=== PATIENT | female | born 1995 | race Caucasian/White ===

== ENCOUNTER 2023-12-03 08:39 | Emergency (ER) | payer OTHER, SELFPAY ==
--- NOTE | ~2023-12-03 | CT_ITS ---
EXAMINATION: CT thoracic lumbar wo con DATE: 12/03/2023 13:37 INDICATION: Fall . TECHNIQUE: Computed tomography (CT) of the thoracic and lumbar spine was performed without intravenou s contrast. Automated exposure control and iterative reconstruction technique were employed. The dose -length product was 1807.54 mGy-cm. COMPARISON: None FINDINGS: THORACIC SPINE: Vertebral body alignment intact. Vertebral body heights preserved. T9 hemangioma. No disc space narro wing. Mild right anterolateral T12 superior endplate deformity, with a small, angular shaped and mini elba displaced fracture fragment. Visualized lung parenchyma is clear. LUMBAR SPINE: 5 nonrib-bearing lumbar-type vertebral bodies. Pedicles intact. Normal vertebral body alignment. Vert ebral body heights preserved. Disc spaces maintained. Normal facets and posterior elements. IMPRESSION: Mild wedge compression fracture at T12. No acute fracture or traumatic malalignment detected in the lumbar spine. Reviewed, dictated and finalized at location K. R OPERATOR
--- NOTE | ~2023-12-03 | XR_ITS ---
EXAMINATION: XR sacrum coccyx min 2V DATE: 12/03/2023 12:09 INDICATION: Right-sided sacrococcygeal pain post fall TECHNIQUE: Frontal, angled frontal and lateral views of the sacrum and coccyx were obtained. COMPARISON: None. FINDINGS: Alignment is normal. Sacral arches are intact. No fractures. Visualized lower lumbar disc spaces are normal. Bilateral hip and sacroiliac joint spaces are normal. IMPRESSION: 1. Negative sacrococcygeal radiographs. Reviewed, dictated and finalized at location A. OS DEVELOPER
[2023-12-03 08:57] VITALS: BP 135/75; PULSE 81; RESP 18; TEMP 36; O2SAT 97
--- NOTE | 2023-12-03 11:56 | ED.FALL ---
HPI - Fall General Chief Complaint: Fall Stated Complaint: Fall, Lower Back Pain Time Seen by Provider: 12/03/23 11:06 History of Present Illness HPI Narrative: Patient is a 28-year-old female who presents to the emergency department this morning status post a slip and. Patient states that she was walking outside and slipped on some ice landing on her coccyx. Patient is currently complaining of tailbone pain and lower back pain. Patient states that she has been walking since the fall but it is slightly uncomfortable due to pain. Denies any neurological symptoms including lower extremity weakness, any bowel or bladder incontinence, any numbness or tingling along the bilateral lower extremity. Patient denies falling backwards and denies hitting her head. States that she remembers the full event. She is currently denying any additional symptoms including chest pain, shortness of breath, nausea, vomiting, or abdominal pain. There are no other modifying, alleviating, or precipitating factors at this time. The remainder of the history present illness and review of systems negative unless stated otherwise in HPI. Related Data Allergies Allergy/AdvReac Type Severity Reaction Status Date / Time No Known Allergies Allergy Verified 12/03/23 08:59 Review of Systems Review of Systems: All systems are reviewed and are negative unless stated otherwise in the HPI. PMFSH Family History Family History Grandparent Thyroid cancer Social History Social History Smoking status: Never smoker Alcohol intake: current Substance use: never Lack of Transportation: No Lack of Food: Never True Current Housing: I Have Housing Concerned About Future Housing: No Difficulty Paying Gas/Electric Bills: No Difficulty Paying for Meds: No Currently Unemployed: No Education: Master's Degree or Higher Difficulty w/ Childcare or Family Care: No Living arrangements: with family Occupation/Education: occupation Additional occupation/education comments: [employer] Gender identity (if verbalized by the patient): Female Sexual Orientation (if Verbalized by the Patient): Straight or Heterosexual Comments Denies any significant past medical or surgical history. Exam Narrative: General: Alert, awake, afebrile, in no acute distress. HEENT: PERRL, no rhinorrhea, no post nasal drip, oropharynx clear. Neck: Trachea midline, no JVD, no lymphadenopathy. Cardiovascular: Regular rate and rhythm, no murmurs, rubs or gallops, no peripheral edema. Respiratory: Clear to auscultation bilaterally, no tachypnea, no wheezing, no rhonchi, no rubs, no respiratory distress. Abdomen: Soft, nontender, nondistended, no rebound, no guarding, no peritoneal signs. Musculoskeletal: No joint swelling or deformity, normal muscle tone. Back: No midline cervical spine tenderness to palpation, midline tenderness to palpation over the lower thoracic and lumbar spine extending down to the coccyx. No step-offs or deformities. Skin: No rashes or petechia, no signs of infection. Psychiatric: Alert and oriented, normal behavior and judgment for situation. Neurological: Alert and oriented to person, place, and time. Follows all commands. No focal deficits, speech is clear and fluent. Course Vital Signs Vital signs: Vital Signs Temperature 96.8 F L 12/03/23 08:57 Pulse Rate 81 12/03/23 08:57 Respiratory Rate 18 12/03/23 08:57 Blood Pressure 135/75 12/03/23 08:57 Pulse Oximetry 97 12/03/23 08:57 Oxygen Delivery Room Air 12/03/23 08:57 Temperature 96.8 F L 12/03/23 08:57 Pulse Rate 81 12/03/23 08:57 Respiratory Rate 18 12/03/23 08:57 Blood Pressure 135/75 12/03/23 08:57 Pulse Oximetry 97 12/03/23 08:57 Oxygen Delivery Room Air 12/03/23 08:57 MDM - Fall MDM Narrative Medical decision making narrative: The
[2023-12-03] MEDS: KETOROLAC 30 MG/ML VIAL (*BKC) 15 MG IM (14:49)
[2023-12-03] MEDS: LIDOCAINE 5% PATCH 1 PATCH TRANSDERM (14:51)
[2023-12-03 15:11] VITALS: BP 127/74; PULSE 80; RESP 18; O2SAT 98
== END 2023-12-03 15:12 | disposition home or self-care (01) ==
PROVIDERS: Emergency Provider Emergency Medicine
DX: S22.080A Wedge compression fracture of T11-T12 vertebra, initial encounter for closed fracture (principal); W00.0XXA Fall on same level due to ice and snow, initial encounter
CPT/HCPCS: 72128; 72131; 72220; 81025; 96372; 99284; A9270; J1885

== ENCOUNTER 2025-09-10 13:26 | Outpatient (CLI) | payer OTHER, SELFPAY ==
--- NOTE | ~2025-09-10 | MMUS_ITS ---
EXAMINATION: MM diagnostic lenoidas BI w danya, US breast LT limited HISTORY: Follow-up cardiac MRI. The MRs not available for comparison. The report, likewise, could not be obtained. The finding questioned is said to have been on the left. TECHNIQUE: Craniocaudal and mediolateral oblique 3-D tomosynthesis images were obtained and synthetic 2-D images were generated. CAD analysis was submitted and interpreted. Grayscale sonography over the area(s) of interest with color Doppler if there is a finding. COMPARISON: None available, including the originating study. BREAST PARENCHYMAL COMPOSITION: The breast tissue is heterogeneously dense, which lowers the sensitivity of mammography. MAMMOGRAM FINDINGS: There is an ovoid circumscribed mass at approximately 11:00. There are no suspicious calcifications. No unexplained architectural distortion is seen. There are no skin or nipple abnormalities identified. There is no adenopathy seen on the images submitted. ULTRASOUND FINDINGS: Sonography through the 11:00 left breast demonstrates a mostly circumscribed, ovoid, hypoechoic mass with a maximum dimension of 1.5 cm and parallel orientation. This accounts for the mammographic mass. It is considered likely to represent a fibroadenoma or other benign finding, less likely. IMPRESSION: Probably benign appearance of a circumscribed mass in the left breast. Six-month follow-up left mammogram and left breast ultrasound are recommended. BI-RADS Code: 3 - Probably benign - short-term follow-up is recommended. BI-RADS 3 -- probably benign, 6-month follow-up Reviewed, dictated and finalized at location B. MOTIVE GENERAL MANAGER IMPRESSION: Probably benign appearance of a circumscribed mass in the left breast. Six-sapna h follow-up left mammogram and left breast ultrasound are recommended. BI-RADS Code: 3 - Probably benign - short-term follow-up is recommended. BI-RADS 3 -- probably benign, 6-month follow-up
--- OUTSIDE RECORDS SUMMARY | 2025-09-10 15:08 | XMS_ITS | Encounter Summary ---
Author Organization [facility] Address [address] [place] [address] Care Team Providers Care Form Raiser Name Role Phone None, Provider Primary Care Provider Jennifer Boyer Primary Care Provider [phone]- [phone] Encounter Details Date Type Department Care Team (Late st Contact Info) Description 09/04/2025 [employer] Message [facility] [phone] Prince Butler MD [address] [address] Medical Records from [facility] Social History Tobacco Use Types Packs/Day Years Used Date Smoking Tobacco: Never Assessed AUDIT-C Answer Date Recorded Q1: How often do you have a drink containing alc ohol? Monthly or less 09/05/2025 Average Number of Drinks Not on file 025 Q3: How often do you have si x or more drinks on one occasion? Less than monthly 09/05/2025 Comments Unknown Sex and Gender Information Value Date Recorded Sex Assigned at Not on file Legal Sex Female 4:03 PM CDT Gender Identity Not on file Sexual Orientation Not on file documented as of this encounter Functional Status documented as of this encounter Plan of Treatment Not on file documented as of this encounter Visit Diagnoses Not on filedocumented in this encounter Care Teams Form Raiser Relationship Specialty Start Date End Date None, Provider, PCP - General UNKNOWN PHYSICIAN SPECIALTY 12/13/23 09/04/25 Jennifer Garcia FNP [address] [place] [address], [address] [place] [phone] PCP - General 09/05/25 documented as of this encounter
--- OUTSIDE RECORDS SUMMARY | 2025-09-10 15:08 | XMS_ITS | Clinical Summary ---
Author Organization [address] Address [address] [place] [phone] Care Team Providers Care Senior Mechanical Development Engineer Name Role Phone Jennifer Garcia NP Primary Care Provider [phone]- [phone] Allergies No known active allergies Medications 122/iron/folic acid ( MULTI ORAL) Take by mouth Active cetirizine (ZyrTEC) 10 mg tablet Take 1 tablet (10 mg total) by mouth daily Active Active Problems Problem Noted Date Diagnosed Date Gastroesophageal reflux disease without esophagi tis 08/01/2025 Assessment & Plan (08/01/2025 10:04 AM CDT): Gastroesophageal reflux disease (GERD) with intermittent dysphagia Daily heartburn with history of dysphagia. Family history of esophageal stricture. Emphasized addressing issues before . - Refer to GI for evaluation and possible EGD. - Consider starting omeprazole if symptoms persist. Morbid obesity with BMI of 40.0-44.9, adult 07/17 Assessment & Plan (08/01/2025 10:04 AM CDT): Discussed the patient's BMI. The BMI is above average. BMI management plan is completed. BMI Follow-up includes: nutrition counseling, exercise counseling and education provided. Encouraged regular physical activity--moderate activity for a total of 150 minutes per week over 3-5 days. Encouraged healthy diet with regular fresh fruits and vegetables limited in processed carbohydrates. Orders: Vitamin D 25 hydroxy; Future Encounter for wellness examination 07/02/2021 Assessment & Plan (08/01/2025 10:04 AM CDT): Routine health maintenance objectives discussed and orders placed for any outstanding screening studies. Physical exam performed as above. Routine annual labs obtained and will be reviewed with patient when results available. Encouraged regular physical activity--moderate activity for a total of 150 minutes per week over 3-5 days. Encouraged healthy diet with regular fresh fruits and vegetables limited in processed carbohydrates. Alcohol use - social Nicotine use - never Depression screening - PHQ Screening Over the past 2 weeks, how often have you been bothered by any of the following problems? Little Interest or Pleasure in Doing Things: 0-Not at all Feeling Down, Depressed, or Hopeless: 0-Not at all PHQ-2 Total Score (If total score is 3 or more points, staff should administer the PHQ-9): 0 Assessment & Plan (07/03/2021 2:00 PM CDT): Health Maintenance: -PCV13 vaccine: N/A -PPSV23 vaccine: N/A -Tdap vaccine: due? 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 Will try and track down her a shot record to determine her last Tdap. If we are unable to get this we can administer Tdap. She is up-to-date on Pap smear. She sees Gynecology. Work on healthy diet and exercise habits. See me annually for routine physicals. Resolved Problems Problem Noted Date Diagnosed Date Resolved Date Class 1 obesity due to exces s calories without serious comorbidity with body mass index (BMI) of 32.0 to 32.9 in adult 07/03/2021 Assessment & Plan (07/03/2021 1:39 PM CDT): Reviewed BMI Focus on healthy diet options Work on healthy changes Encounters Date Type Department Care Team Description 08/05/2025 Results Follow-Up [facility] Primary Care at [address] [phone] Jennifer Garcia NP Hepatitis C antibody Blood, Hemoglobin A1c, Insulin, total, Additional followed-up results: 4 07/30/2025 4:00 PM CDT Lab [address] [address] Need for hepatitis C screening test; Elevated blood sugar; Morbid obesity with BMI of 40.0-44.9, adult (HCC); Elevated C-reactive protein (CRP) 07/30/2025 3:30 PM CDT Office Visit [facility] Primary Care at [address] [phone] Jennifer Garcia NP Morbid obesity with BMI of 40.0-44.9, adult (HCC) (Primary Dx); Elevated blood sugar; Elevated C-reactive protein (CRP); Need for hepatitis C screening test; Encounter for wellness examination; Oropharyngeal dysphagia; Gastroesophageal reflux disease without esophagitis; Screening for iron deficiency anemia; Screening, lipid from Last 3 Months Immunizations Immunization Administration Dates Next Due Tdap 03/16/2022 Medical History Medical History Date Comments Hip problem Family History Medical History Relation Name Comments Diabetes Brother 1 Diabetes Brother 3 Aba Kareen Alcohol abuse Father Aba Kareen Diabetes Father Aba Kareen Drug abuse Father Aba Kareen Cancer Maternal Grandmother Keysha Matti Anemia Mother Ivis Mathur Alcohol abuse Mother's Brother Real Matti Relation Name Status Comments Brother 1 Alive Brother 2 Alive Brother 3 Aba Kareen Alive Father Aba Kareen Alive Maternal Grandmother Keysha Matti Alive Mother Ivis Mathur Alive Mother's Brother Real Matti Alive Social History Tobacco Use Types Packs/Day Years Used Date Smoking Tobacco: Never Passive Smoke Exposure: Never Smokeless Tobacco: Never Tobacco Cessation:Counseling Given: Not Answered Alcohol Use Standard Drinks/Week Comments Yes 0 (1 standard drink = 0.6 oz pur e alcohol) PHQ-2 Answer Date Recorded PHQ-2 Total Score (If total score is 3 or more points, staff should administer the PHQ-9) 0 07/30/2025 AUDIT-C Answer Date Recorded Q1: How often do you have a drink containing alc ohol? Monthly or less 07/30/2025 Q2: How many drinks containi ng alcohol do you have on a typical day when you are drinking? 1 or 2 07/30/2025 Q3: How often do you have si x or more drinks on one occasion? Never 07/30/2025 Comments No Sex and Gender Information Value Date Recorded Sex Assigned at Not on file Legal Sex Female 6:19 PM MEDICAL FACILITIES SECTION DIRECTOR Gender Identity Female 06/27/2021 3:29 PM CDT Sexual Orientation Straight 06/27/2021 3: 29 PM CDT Last Filed Vital Signs Vital Sign Reading Time Taken Comments Blood Pressure 102/70 07/30/2025 3:15 PM CDT Pulse 73 07/30/2025 3:15 PM CDT Temperature 36.3 C (97.3 F) 07/30/2025 3:15 PM CDT Respiratory Rate 16 07/30/2025 3:15 PM CDT Oxygen Saturation 99% 07/30/2025 3:15 PM CDT Inhaled Oxygen Concentration - - Weight 113.4 kg (250 lb) 07/30/2025 3:15 PM CDT Height 167.6 cm (5' 6) 07/30/2025 3:15 PM CDT Body Mass Index 40.35 07/30/2025 3:15 PM CDT Plan of Treatment Health Maintenance Due Date Last Done Comments Cervical Cancer Screening 08/30/2024 08/30/2023 Influenza Vaccine (#1) 2026 Postp oned from 06/17/2025 (Patient declined, but will receive in the future) Covid-19 Vaccine ( season) 2026 03/12/2021, 01/29/2021 Postponed from 06/17/2025 (Patient declined, but will receive in the future) Depression Screening 07/30/2026 07/30/2025, 07/03/2021 Regular Well Visit/Exam 18-64 07/30/2026 07/30/2025, 07/03/2021 DTaP/Tdap/Td Vaccine (2 - Td or Tdap) 03/16/2032 03/16/2022 Hepatitis C Screening Completed 07/30/2025 HPV Vaccines Discontinued Hepatitis B Screening Discontinued Pneumococcal vaccine <65 Aged Out No longer eligible based on patient's age to complete this topic Varicella Vaccines Discontinued Procedures Procedure Name Priority Date/Time Associated Diagnosis Comments EGFR Routine 07/30/2025 4:08 PM CDT Elevated blood sugar MARIAM SCREEN W/REFLEX JUAN M+DSDNA Routine 07/30/2025 4:08 PM CDT Elevated C-reactive protein (CRP) VITAMIN D 25 HYDROXY Routine 07/30/2025 4:08 PM CDT Morbid obesity with BMI of 40.0-44.9, adult (HCC) COMPREHENSIVE METABOLIC PANEL Routine 07/30/2025 4:08 PM CDT Elevated blood sugar INSULIN, TOTAL Routine 07/30/2025 4:08 PM CDT Elevated blood sugar HEMOGLOBIN A1C Routine 07/30/2025 4:08 PM CDT Elevated blood sugar HEPATITIS C ANTIBODY Routine 07/30/2025 4:08 PM CDT Need for hepatitis C screening test HM PAP SMEAR WITH HPV Routine 08/30/2023 from Last 3 Months or Most Recently Relevant to Health Maintenance Results * MARIAM screen w/rflx JUAN M+dsDNA (07/30/2025 4:08 PM CDT) MARIAM Negative Comment: Interpretive Data Normal range for MARIAM Qualitative Antibody = Negative. 1. MARIAM is performed using indirect immunofluorescence against HEp-2 cells 2. MARIAM titers are performed on all positive qualitative results. 3. A significantly positive MARIAM result is defined as a positive nuclear fluorescence at a titer of 1:80 or greater. 4. 15% of normal people above age 65 have significantly positive MARIAM results. 5% or less of normal people age 65 or under have significantly positive MARIAM results. Current interpretive data was last revised on 2020. Testing performed by: [facility], [address] [facility], [place]., [address] Blood 07/30/2025 4:08 PM CDT 07/30/2025 9:07 PM CDT Jennifer Garcia PAVING BED MAKER LAB BLOOD ORDERABLES Final Result Performing Organization Address City/[facility]/ZIP Co de Phone Number GEORGE [address] [address] * eGFR (07/30/2025 4:08 PM CDT) [facility] eGFR >90 >=60 mL/min/1. 73 m2 Comment: Interpretive Data Reference Interval Normal >/= 90 mL/min/1.73m2 Mildly decreased* 60 - 89 mL/min/1.73m2 Mildly to moderately decreased 45 - 59 mL/min/1.73m2 Moderately to severely decreased 30 - 44 mL/min/1.73m2 Severely decreased 15 - 29 mL/min/1.73m2 Kidney Failure < 15 mL/min/1.73m2 *Relative to young adult level Estimated glomerular filtration rate is determined by the 2020 CKD-EPI equation recommended by the National Kidney Foundation (A Unifying Approach to GFR Estimation: Recommendations of the NKF-ASK Task Force on Reassessing the Inclusion of Race in Diagnosing Kidney Disease, JASN 2020). The CKD-EPI equation should not be used for patients with unstable renal function and has not been validated in children and those over 70. Current interpretive data was last reviewed 2021. Blood 07/30/2025 4:08 PM CDT 07/30/2025 7:03 PM CDT Jennifer Garcia PAVING BED MAKER LAB BLOOD ORDERABLES Final Result Performing Organization Address [facility]/ZIP Co de Phone Number GEORGE [facility] [facility] [employer] [place] [address] * Hepatitis C antibody Blood (07/30/2025 4:08 PM CDT) [facility] Hep C Ab Nonreactive Nonreactive Comment: Antibodies to HCV not detected. Does NOT exclude the possibility of recent exposure to HCV. Current interpretive data was last revised on 22 Interpretive Data Nonreactive: Antibodies to HCV not detected. Does NOT exclude the possibility of recent exposure to HCV. Equivocal: Equivocal for HCV antibodies. Supplemental molecular testing will be automatically performed to determine infection status in accordance with current CDC screening recommendations. Reactive: Positive for HCV antibodies. This may represent current or past HCV infection. Supplemental molecular testing will be automatically performed to determine current infection status in accordance with current CDC screening recommendations. Interpretive data was last revised on 2020. Blood 07/30/2025 4:08 PM CDT 07/30/2025 7:03 PM CDT Jennifer Garcia PAVING BED MAKER LAB MICROBIOLOGY - GENERAL ORDERABLES Final Result Performing Organization Address City/[facility] Co de Phone Number GEORGE [address] [address] * (ABNORMAL) Vitamin D 25 hydroxy (07/30/2025 4:08 PM CDT) Pathologist [facility] Vitamin D 25-OH 21.0(L) 30.0 - 80.0 ng/mL Blood 07/30/2025 4:08 PM CDT 07/30/2025 7:03 PM CDT Jennifer Garcia NP LAB BLOOD ORDERABLES Final Result Performing Organization Address [facility] Co de Phone Number MEEN[address] [address] * Insulin, total (07/30/2025 4:08 PM CDT) Pathologist [facility] Insulin 20.3 2.6 - 25.0 mcIUnit/mL Blood 07/30/2025 4:08 PM CDT 07/30/2025 7:03 PM CDT Jennifer Garcia NP LAB BLOOD ORDERABLES Final Result Performing Organization Address City/[facility] Co de Phone Number ME[address] [address] * (ABNORMAL) Hemoglobin A1c (07/30/2025 4:08 PM CDT) Pathologist [facility] Hgb A1C 5.7(H) 4.0 - 5.6 % Estimated Average Glucose 117 mg/dL [facility] Comment: The ADA recommends reporting an estimated Average Glucose (eAG) with all Hemoglobin A1c results using the equation derived from a study of 507 normal and diabetic adults. Minority populations were underrepresented and children were not included. (Diabetes Care 31:0592-5677, 2008). The eAG is not equivalent to a fasting glucose. Blood 07/30/2025 4:08 PM CDT 07/30/2025 7:03 PM CDT Jennifer Garcia NP LAB BLOOD ORDERABLES Final Result [facility] [address] [facility] Department [place] [address] * Comprehensive metabolic panel (07/30/2025 4:08 PM CDT) Sodium 139 135 - 145 mmol/L Potassium, pl 4.2 3.3 - 4.9 mmol/L [facility] Chloride 102 97 - 110 mmol/L [facility] CO2 29 22 - 32 mmol/L [facility] Anion gap 8 2 - 15 mmol/L [facility] BUN 11 6 - 25 mg/dL [facility] Creatinine 0.68 0.60 - 1.10 mg/dL [facility] Glucose 98 70 - 199 mg/dL [facility] Comment: Interpretive Data Fasting glucose >/= 126 mg/dl is diagnostic for diabetes. Fasting is defined as no caloric intake for at least 8 hours. Fasting glucose between 100 mg/dl to 125 mg/dl is diagnostic of prediabetes. In a patient with classic symptoms of hyperglycemia or hyperglycemic crisis, a random glucose >/= 200 mg/dl is diagnostic for diabetes. In the absence of unequivocal hyperglycemia, results should be confirmed by repeat testing. The classification and Diagnosis of Diabetes Diabetes Care 202; 46: S19-S40. Current interpretive data was last revised 2022. Calcium 10.1 8.5 - 10.3 mg/dL [facility] Bilirubin, total 0.4 0.1 - 1.2 mg/dL [facility] Protein, pl 7.9 6.5 - 8.5 g/dL [facility] Albumin 4.3 3.5 - 5.0 g/dL [facility] Alk phos 113 40 - 130 Units/L [facility] ALT 16 7 - 45 Units/L [facility] AST 18 10 - 45 Units/L [facility] Blood 07/30/2025 4:08 PM CDT 07/30/2025 7:03 PM CDT Jennifer Garcia NP LAB BLOOD ORDERABLES Final Result GEORGE [address] [facility] Department [place] [address] * PAP SMEAR WITH HPV (08/30/2023) Scribed Pap Smear w/HPV Normal Historical Provider HEALTH MAINTENANCE Final Result from Last 3 Months or Most Recently Relevant to Health Maintenance Insurance [facility] Care Teams Senior Mechanical Development Engineer Relationship Specialty Start Date End Date Jennifer Garcia NP [address] [place] [address] PCP - General Internal Medicine 07/30/25
--- OUTSIDE RECORDS SUMMARY | 2025-09-10 15:08 | XMS_ITS | Clinical Summary ---
Author Organization [facility] Address [address] [place] [address] Care Team Providers Care Bicycle Rental Clerk Name Role Phone Jennifer Garcia VIRGIL Primary Care Provider +1- [phone] Active Problems Problem Noted Date Diagnosed Date Precordial pain 09/05/2025 Encounters Date Type Department Care Team Description 09/09/2025 [facility]Chart [facility] [address] [place] [phone] Dane Segura MD ECG test results 09/05/2025 9:15 AM AUTOMOBILE OR TRUCK RENTAL DISPATCHER Office Visit [facility] [address] [place] [phone] Dane Segura MD Consult (SHORTNESS OF BREATH); Chest Pain 09/05/2025 Travel 09/04/2025 MyChart Message Enc [facility] [address] [place] [phone] Dane Segura MD Medical Records from [facility] from Last 3 Months Family History Medical History Relation Comments Heart Attack Paternal Grandfather Relation Status Comments Brother 1 Alive Brother 2 Alive Father Alive Maternal Grandfather Alive Maternal Grandmother Alive Mother Alive Paternal Grandfather Alive Paternal Grandmother Alive Social History Tobacco Use Types Packs/Day Years Used Date Smoking Tobacco: Never Smokeless Tobacco: Never Tobacco Cessation:Counseling Given: Not Answered AUDIT-C Answer Date Recorded Q1: How often [...] on file Sexual Orientation Not on file Last Filed Vital Signs Vital Sign Reading Time Taken Comments Blood Pressure 120/68 09/05/2025 9:06 AM AUTOMOBILE OR TRUCK RENTAL DISPATCHER Pulse 71 09/05/2025 9:06 AM AUTOMOBILE OR TRUCK RENTAL DISPATCHER Temperature - - Respiratory Rate - - Oxygen Saturation - - Inhaled Oxygen Concentration - - Weight 113.4 kg (250 lb) 09/05/2025 9:06 AM AUTOMOBILE OR TRUCK RENTAL DISPATCHER Height 167.6 cm (5' 6) 09/05/2025 9:06 AM AUTOMOBILE OR TRUCK RENTAL DISPATCHER Body Mass Index 40.35 09/05/2025 9:06 AM AUTOMOBILE OR TRUCK RENTAL DISPATCHER Plan of Treatment Health Maintenance Due Date Last Done Comments Cervical Cancer Screening Pa p Smear (Age 21 to 29) Every 3 Years 1996 Cervical Cancer Screening 1996 Annual Physical 1999 Hepatitis C 2014 Hepatitis B Vaccines (1 of 3 - 19+ 3-dose series) 2015 HPV Vaccines (1 - 3-dose SCD M series) 2023 COVID-19 Vaccine ( - 2024-2 6 season) 2025 Influenza Adult (#1) 2025 DTaP, Tdap and Td Vaccines ( 2 - Td or Tdap) 03/16/2032 03/16/2022 Hepatitis A Vaccines Aged Out No long er eligible based on patient's age to complete this topic Meningococcal B Vaccine Aged Out No l onger eligible based on patient's age to complete this topic Meningococcal Vaccine Aged Out No bright mayo eligible based on patient's age to complete this topic Pneumococcal Vaccine: Pediat rics (0 to 5 Years) and At-Risk Patients (6 to 49 Years) Aged Out No longer eligi ble based on patient's age to complete this topic RSV Immunizations Under 20 Months Aged Out No longer eligible based on patient's age to complete this topic Procedures Procedure Name Priority Date/Time Associated Diagnosis Comments ELECTROCARDIOGRAM (NON MIDMARK ACQUIRED) Routine 09/05/2025 9:04 AM AUTOMOBILE OR TRUCK RENTAL DISPATCHER Precordial pain Shortness of breath from Last 3 Months Results * ELECTROCARDIOGRAM (09/05/2025 9:04 AM AUTOMOBILE OR TRUCK RENTAL DISPATCHER) ECG QT 344 [facility] ECG QTC 396 [facility] 09/05/2025 9:04 AM AUTOMOBILE OR TRUCK RENTAL DISPATCHER Narrative [facility] - 09/06/2025 9:26 PM AUTOMOBILE OR TRUCK RENTAL DISPATCHER [facility] Test Date: 2025-09-05 Pat Name: ANASTASIYA DURAN Department: 108 Room: Gender: Female Wholesale Account Manager: : 1995 Requested By: DANE SEGURA Order Number: [id number] Reading MD: Michael Roche Measurements Intervals [place] Rate: 79 P: 44 MD: 154 QRS: 73 QRSD: 86 T: -23 QT: 344 QTc: 396 Interpretive Statements SINUS RHYTHM ST DEVIATION AND MODERATE T-WAVE ABNORMALITY, CONSIDER ANTEROLATERAL ISCHEMIA No prior ECG for comparison MOBILE OR TRUCK RENTAL DISPATCHER Procedure Note Michael Roche MD - 09/06/2025 [facility] Date: 2025-09-05 Pat Name: ANASTASIYA DURAN Department: 108 Room: Gender: Female Wholesale Account Manager: : 1995 Requested By: DANE SEGURA Order Number: [id number] Reading MD: Michael Roche Measurements Intervals [place] Rate: 79 P: 44 MD: 154 QRS: 73 QRSD: 86 T: -23 QT: 344 QTc: 396 Interpretive Statements SINUS RHYTHM ST DEVIATION AND MODERATE T-WAVE ABNORMALITY, CONSIDER ANTEROLATERALISCHEMIA No prior ECG for comparison MOBILE OR TRUCK RENTAL DISPATCHER us Dane Segura MD PROCEDURES-ORDERABLE NO CHARGE F inal Result [facility] from Last 3 Months Insurance [facility] [facility] Care Teams Bicycle Rental Clerk Relationship Specialty Start Date End Date Jennifer Garcia FNP [address] [place] [address], [address] [place] [address] PCP - General 09/05/25
--- OUTSIDE RECORDS SUMMARY | 2025-09-10 15:08 | XMS_ITS | Encounter Summary ---
Author Organization [facility] Address [address] [place] [address] Care Team Providers Care Slitter Scorer Cut Off Operator Name Role Phone AneeshChristo riojasgordon HERMAN Primary Care Provider [phone]- [phone] Encounter Details Date Type Department Care Team (Late st Contact Info) Description 09/09/[address] [facility] [address] [facility] [phone] Prince Butler MD [address] [place] [address] ECG test results Social History Tobacco Use Types Packs/Day Years Used Date Smoking Tobacco: Never Smokeless Tobacco: Never AUDIT-C Answer Date Recorded Q1: How often [...] on file documented as of this encounter Progress Notes * Maribeth Jackson RN - 09/09/2025 12:57 PM CST . LESS CELLULAR TECHNICIAN documented in this encounter Plan of Treatment Not on file documented as of this encounter Visit Diagnoses Not on filedocumented in this encounter Care Teams Slitter Scorer Cut Off Operator Relationship Specialty Start Date End Date Jennifer Garcia FNP [address] [place] [address], [address] [place] [address] PCP - General 09/05/25 documented as of this encounter
--- OUTSIDE RECORDS SUMMARY | 2025-09-10 15:08 | XMS_ITS | Encounter Summary ---
Author Organization [facility] Healthcare Address [address] [place] [address] Care Team Providers Care National Opelint Analyst Name Role Phone Jennifer Garcia NP Primary Care Provider +1- [phone] Encounter Details Date Type Department Care Team (Late st Contact Info) Description 08/05/2025 Results Follow-Up [facility] Primary Care at [address] [address] Jennifer Garcia NP [address] [place] [address] [address] [place] [address] Hepatitis C antibody Blood, Hemoglobin A1c, Insulin, total, Additional followed-up results: 4 Social History Tobacco Use Types Packs/Day Years Used Date Smoking Tobacco: Never Passive Smoke Exposure: Never Smokeless Tobacco: Never Alcohol Use Standard Drinks/Week Comments Yes 0 [...] on file Legal Sex Female 6:19 PM [employer] Gender Identity Female 06/27/2021 3:29 PM CDT Sexual Orientation Straight 06/27/2021 3: 29 PM CDT documented as of this encounter Plan of Treatment Not on file documented as of this encounter Visit Diagnoses Not on filedocumented in this encounter Care Teams National Opelint Analyst Relationship Specialty Start Date End Date Jennifer Garcia NP [address] [facility] [address] [place] [address] PCP - General Internal Medicine 07/30/25 documented as of this encounter
== END 2025-09-10 13:27 | disposition home or self-care (01) ==
LOC: ANHFOHIMG 13:28
PROVIDERS: Visit Provider Student in an Organized Health Care Education/Training Program
DX: N63.22 Unspecified lump in the left breast, upper inner quadrant (principal)
CPT/HCPCS: 76642; 77062; 77066; G0279

== ENCOUNTER 2025-09-17 09:02 | Outpatient (CLI) | payer OTHER, SELFPAY ==
[2025-09-17 10:04] LABS: Hemoglobin A1C 5.7 % (<5.7)
[2025-09-17 10:40] LABS: Thyroid Stimulating Hormone 2.060 uIU/mL (0.465-4.680)
[2025-09-18 07:09] LABS: FSH 6.9 mIU/mL (.); LH 5.6 mIU/mL (.)
[2025-09-19 10:09] LABS: Free Testosterone (Direct) 1.7 pg/mL (0.0-4.2)
[2025-09-20 18:08] LABS: Estradiol, Sensitive 30.3 pg/mL (.)
== END 2025-09-17 09:03 | disposition home or self-care (01) ==
PROVIDERS: Visit Provider Student in an Organized Health Care Education/Training Program
DX: N91.2 Amenorrhea, unspecified (principal)
CPT/HCPCS: 36415; 82166; 82670; 83001; 83002; 83036; 84144; 84402; 84403; 84443